=== PATIENT | female | born 1985 | race Caucasian/White ===

== ENCOUNTER 2017-10-11 15:29 | Emergency (ER) | payer OTHER ==
[~2017-10-11] VITALS: Ht 165.1 cm; Wt 207.0 kg
[2017-10-11 16:02] VITALS: BP 140/94
[2017-10-11] MEDS ORDERED: GLIP10TE PO (16:15)
[2017-10-11] MEDS ORDERED: FURO-572 PO (16:15)
[2017-10-11] MEDS ORDERED: GABA100C PO (16:15)
[2017-10-11] MEDS ORDERED: SITA50TA3 PO (16:15)
[2017-10-11 17:15] LABS: BASOPHILS # (AUTO) 0.8 K/uL (0.00-0.22); EOSINOPHILS # (AUTO) 0.3 K/uL (0-0.4); HEMATOCRIT 48.3 % (36-48); HEMOGLOBIN 15.1 g/dL (12.0-16.0); LYMPHOCYTES # (AUTO) 2.4 K/uL (2.5-16.5); MEAN CORPUSCULAR HEMOGLOBIN 29 pg (27-31); MEAN CORPUSCULAR HGB CONC 31 g/dL (33-37); MEAN CORPUSCULAR VOLUME 91 fL (80-94); MONOCYTES # (AUTO) 0.5 K/uL (0.8-1.0); NEUTROPHILS # (AUTO) 5.6 K/uL (1.8-7.7); PLATELET COUNT (AUTO) 209 K/uL (140-450); RED CELL DISTRIBUTION WIDTH 13.4 % (11.6-13.7); WHITE BLOOD COUNT (AUTO) 9.6 K/uL (4.8-10.8)
[2017-10-11 17:42] LABS: ALBUMIN 3.3 g/dL (3.4-5.0); ANION GAP 10.6 (8-16); CARBON DIOXIDE 30.2 mmol/L (21-32); CREATININE 0.9 mg/dL (0.6-1.3); POTASSIUM 3.8 mmol/L (3.5-5.1); TOTAL BILIRUBIN 0.6 mg/dL (0.0-1.0)
--- NOTE | 2017-10-11 19:20 | NUR ---
PT. AMBULATED TO ER BED 4
[2017-10-11 19:33] VITALS: BP 144/96
--- NOTE | 2017-10-11 19:40 | NUR ---
32Y/F PT. PRESENST TO ED WITH C/O ABDOMINAL PAIN X 3 DAYS. PT DENIES N/V/D, NO MEDICAL HX.; SKIN IS INTACT, PINK/WARM/DRY; AAOX4, PERRL, WITH EVEN AND STEADY GAIT; LUNGS CLEAR BL, BREATHING UNLABORED; HR EVEN AND REGULAR, BL PERIPHERAL PULSES PRESENT; BS ACTIVE X4, NO TENDERNESS TO PALPATION, PT DENIES ANY FEVER, CP, SOB, OR COUGH AT THIS TIME; PT STATES 9/10 PAIN AT THIS TIME; VSS; PATIENT POSITIONED FOR COMFORT; HOB ELEVATED; ER MD MADE AWARE OF PT. STATUS.
--- NOTE | 2017-10-11 20:27 | NUR ---
Patient being evaluated by DR. GRUBBS at bedside.
[2017-10-11] MEDS ORDERED: LIDOCAINE VISCOUS 2% 20 ML UDC PO ONE (20:30)
[2017-10-11] MEDS ORDERED: DICYCLOMINE HCL LIQUID 10 MG/5 ML UDC PO ONE (20:30)
[2017-10-11] MEDS ORDERED: ALUMINUM HYD/MAG/SIMETHICONE 30 ML UDC PO ONE (20:30)
[2017-10-11 20:56] LABS: BILIRUBIN,URINE 1+ (NEGATIVE); BLOOD, URINE 3+ (NEGATIVE); LEUKOCYTE ESTERASE ,URINE NEGATIVE (NEGATIVE); NITRITE, URINE NEGATIVE (NEGATIVE); PH,URINE 6.5 (5.0-9.0); UGLUCOSE NEGATIVE (NEGATIVE)
[2017-10-11 21:00] LABS: COLOR,URINE BLOODY (YELLOW)
[2017-10-11 21:05] LABS: APPEARANCE,URINE HAZY (CLEAR); RBC,URINE 0-5 (RARE) /HPF (0-5); WBC,URINE 20-60 /HPF (0-5)
--- NOTE | 2017-10-11 21:38 | NUR ---
US AT BEDSIDE
--- NOTE | 2017-10-11 22:12 | NUR ---
PATIENT ELOPED FROM FACILITY. DISCHARGE INSTRUCTIONS NOT GIVEN TO PATIENT. DR. GRUBBS NOTIFIED.
== END 2017-10-11 22:12 | disposition left against medical advice (07) ==
LOC: MED 15:29
DX: K21.9 Gastro-esophageal reflux disease without esophagitis (principal); R80.9 Proteinuria, unspecified; E11.9 Type 2 diabetes mellitus without complications; I10 Essential (primary) hypertension; E03.9 Hypothyroidism, unspecified; Z88.0 Allergy status to penicillin
CPT/HCPCS: 36415; 76770; 80053; 81001; 81025; 83690; 85025; 87086; 99285; Q0092